=== PATIENT | female | born 1960 | race Caucasian/White ===

== ENCOUNTER 2017-12-08 12:58 | Inpatient (IN) | payer OTHER, MEDICAID ==
[~2017-12-08] VITALS: Ht 200.7 cm; Wt 98.1 kg
[~2017-12-08 12:58] MED LIST: DICY20TA66; ESTR0.5T3; IBU; NAPR375T27 PO; SIMV-8; SIMV-8 PO
[2017-12-08 13:49] LABS: Basophils # (auto) 0.1 uL; Basophils % (auto) 0.7 % (0.0-2.0); Eosinophils # (auto) 0 uL; Eosinophils % (auto) 0.3 % (0.0-7.0); Hematocrit 39.3 % (36.0-46.0); Hemoglobin 13.3 g/dL (12.2-16.2); Lymphocytes # (auto) 0.7 uL; Lymphocytes % (auto) 8.8 % (10.0-50.0); Mean Corpuscular Hemoglobin 34.2 pg (28.0-32.0); Mean Corpuscular Hgb Conc. 33.9 g/dL (32.0-36.0); Mean Corpuscular Volume 100.9 fL (80.0-100.0); Monocytes % (auto) 11.6 % (0.0-12.0); Neutrophils # (auto) 6.4 uL; Neutrophils % (auto) 78.6 % (37.0-80.0); Nucleated Red Blood Cells % 0.1 %; Platelet Count (auto) 288 10^3/uL (140-450); Red Blood Cells 3.89 10^6/uL (4.0-5.20); Red Cell Distribution Width 12.6 % (11.8-14.3); White Blood Cell 8.2 10^3/uL (4.4-10.8)
[2017-12-08 14:10] LABS: Albumin 3.5 g/dL (3.4-5.0); Potassium 4.2 mmol/L (3.5-5.1)
[2017-12-08 14:16] LABS: Bilirubin, Total 0.5 mg/dL (0.2-1.0); Total Protein 7.6 g/dL (6.4-8.2)
[2017-12-08] MEDS ORDERED: SODIUM CHLORIDE 0.9% 1,000 ML IVB ONE (16:33)
[2017-12-08] MEDS ORDERED: ASPirin-EC 81 mg tab PO ONE (16:45)
[2017-12-08] MEDS ORDERED: ONDANSETRON HCL 4 MG/2 ML VIAL IV ONE (16:45)
[2017-12-08] MEDS ORDERED: SODIUM CHLORIDE 0.9% 1,000 ML IV ONE (17:00)
[2017-12-08 17:09] LABS: INR 0.83 (0.9-1.15); Partial Thromboplastin Time 20.9 sec (23.78-33.04)
[2017-12-08 17:11] LABS: Magnesium 2.2 mg/dL (1.6-2.6)
[2017-12-08] MEDS ORDERED: ZOLEDRONIC ACID 4 MG in SODIUM CHL 0.9% 100 ML IV ONE (17:15)
[2017-12-08] MEDS ORDERED: SODIUM CHLORIDE 0.9% 1,000 ML IV SCH (17:23)
[2017-12-08] MEDS ORDERED: ALUM & MAG HYDROX-SIMETH LIQ(MAALOX) 30 ML PO PRN (17:30)
[2017-12-08] MEDS ORDERED: HYDROmorphone HCL 2 MG/ML VL IV PRN (17:30)
[2017-12-08] MEDS ORDERED: DOCUSATE SOD 100 MG CAP PO PRN (17:30)
[2017-12-08 17:33] LABS: Urine Amorphous Crystal FEW /hpf (None Seen); Urine Bacteria FEW /hpf (None Seen); Urine Blood 1+ /uL (Negative); Urine Specific Gravity 1.005 (1.001-1.035); Urine WBC 18 /hpf (0 - 5)
[2017-12-08] MEDS ORDERED: CYANOCOBALAMIN (B-12) 1000 MCG/1 ML VIAL IM ONE (18:00)
[2017-12-08] MEDS: SODIUM CHLORIDE 0.9% 1,000 ML IV SCH (18:34)
[2017-12-08] MEDS: PANTOPRAZOLE 40 MG/10 ML VIAL IV SCH (18:34)
[2017-12-08] MEDS: ONDANSETRON HCL 4 MG/2 ML VIAL IV PRN (19:53)
[2017-12-08 20:20] VITALS: BP 190/111
[2017-12-08 21:00] VITALS: BP 158/115
[2017-12-08] MEDS ORDERED: hydrALAZINE HCL 20 MG/ML VL IV PRN (21:30)
[2017-12-08] MEDS ORDERED: LABETALOL HCL 5 MG/ML ML 20ML VIAL IV PRN (21:50)
[2017-12-08] MEDS: LABETALOL HCL 5 MG/ML ML 20ML VIAL IV PRN (23:00)
[2017-12-09] MEDS: SODIUM CHLORIDE 0.9% 1,000 ML IV SCH ×2 (04:00→16:45)
[2017-12-09 04:43] VITALS: BP 158/86
[2017-12-09 05:44] LABS: Basophils # (auto) 0.1 uL; Basophils % (auto) 0.8 % (0.0-2.0); Eosinophils # (auto) 0.1 uL; Hemoglobin 12.1 g/dL (12.2-16.2); Lymphocytes # (auto) 0.6 uL
[2017-12-09 05:46] LABS: Eosinophils % (auto) 1.3 % (0.0-7.0); Lymphocytes % (auto) 7.4 % (10.0-50.0); Mean Corpuscular Hemoglobin 35.1 pg (28.0-32.0); Mean Corpuscular Hgb Conc. 34.6 g/dL (32.0-36.0); Mean Corpuscular Volume 101.3 fL (80.0-100.0); Monocytes # (auto) 0.5 uL; Monocytes % (auto) 5.8 % (0.0-12.0); Neutrophils # (auto) 7.4 uL; Neutrophils % (auto) 84.7 % (37.0-80.0); Nucleated Red Blood Cells % 0.1 %; Platelet Count (auto) 239 10^3/uL (140-450); Red Blood Cells 3.46 10^6/uL (4.0-5.20); Red Cell Distribution Width 12.3 % (11.8-14.3); White Blood Cell 8.8 10^3/uL (4.4-10.8)
[2017-12-09 06:10] LABS: Potassium 4.3 mmol/L (3.5-5.1)
[2017-12-09 06:20] LABS: BUN/Creatinine Ratio 10.2
[2017-12-09 07:15] LABS: Calcium 14.8 mg/dL (8.5-10.1)
[2017-12-09 08:08] VITALS: BP 163/86
[2017-12-09] MEDS ORDERED: SODIUM CHLORIDE 0.9% 1,000 ML IV SCH (08:30)
[2017-12-09] MEDS: LABETALOL HCL 5 MG/ML ML 20ML VIAL IV PRN (08:48)
[2017-12-09] MEDS: PANTOPRAZOLE 40 MG/10 ML VIAL IV SCH (10:37)
[2017-12-09] MEDS: ONDANSETRON HCL 4 MG/2 ML VIAL IV PRN ×3 (10:37→21:40)
[2017-12-09 12:30] VITALS: BP 153/98
[2017-12-09 15:14] LABS: BUN/Creatinine Ratio 10.5; Potassium 4.3 mmol/L (3.5-5.1)
[2017-12-09 15:30] LABS: Calcium 14.4 mg/dL (8.5-10.1)
[2017-12-09 16:11] VITALS: BP 151/100
[2017-12-09] MEDS ORDERED: hydrALAZINE HCL 20 MG/ML VL IV PRN (16:45)
[2017-12-09] MEDS ORDERED: amLODIPine BESYLATE 5 MG TAB PO ONE (17:00)
[2017-12-09 22:00] VITALS: BP 153/76
[2017-12-10 05:00] VITALS: BP 125/70
[2017-12-10] MEDS: SODIUM CHLORIDE 0.9% 1,000 ML IV SCH ×2 (06:17→12:41)
[2017-12-10 07:09] LABS: Basophils # (auto) 0 uL; Basophils % (auto) 0.7 % (0.0-2.0); Lymphocytes # (auto) 0.6 uL; Mean Corpuscular Hgb Conc. 34.3 g/dL (32.0-36.0); Red Blood Cells 3.43 10^6/uL (4.0-5.20)
[2017-12-10 07:10] LABS: Eosinophils # (auto) 0.1 uL; Eosinophils % (auto) 0.9 % (0.0-7.0); Hematocrit 34.7 % (36.0-46.0); Hemoglobin 11.9 g/dL (12.2-16.2); Lymphocytes % (auto) 9.5 % (10.0-50.0); Mean Corpuscular Hemoglobin 34.6 pg (28.0-32.0); Monocytes # (auto) 0.3 uL; Monocytes % (auto) 5.2 % (0.0-12.0); Neutrophils # (auto) 5.5 uL; Neutrophils % (auto) 83.7 % (37.0-80.0); Nucleated Red Blood Cells % 0.1 %; Platelet Count (auto) 204 10^3/uL (140-450); Red Cell Distribution Width 12.6 % (11.8-14.3); White Blood Cell 6.6 10^3/uL (4.4-10.8)
[2017-12-10 07:17] LABS: BUN/Creatinine Ratio 12.3; Calcium 12.3 mg/dL (8.5-10.1); Potassium 3.9 mmol/L (3.5-5.1)
[2017-12-10 07:57] VITALS: BP 131/76
[2017-12-10 08:00] VITALS: BP 131/76
[2017-12-10] MEDS: PANTOPRAZOLE 40 MG/10 ML VIAL IV SCH (09:43)
[2017-12-10] MEDS: amLODIPine BESYLATE 5 MG TAB PO SCH (09:46)
[2017-12-10 09:47] LABS: Creatinine, Urine 18 mg/dL (30.0-125.0)
[2017-12-10 11:15] LABS: Sodium Urine 82 mmol/L (40-220)
[2017-12-10 11:42] VITALS: BP 136/85
[2017-12-10] MEDS: ONDANSETRON HCL 4 MG/2 ML VIAL IV PRN ×2 (12:19→22:14)
[2017-12-10 16:09] VITALS: BP 131/79
[2017-12-10] MEDS: POLYETHYLENE GLYCOL 17 GM PWDR PO PRN (16:36)
[2017-12-10] MEDS: ACETAMINOPHEN 325 MG TAB PO PRN (19:57)
[2017-12-10] MEDS: DOCUSATE SOD 100 MG CAP PO SCH (21:55)
[2017-12-10 22:00] VITALS: BP 125/78
[2017-12-11] MEDS: SODIUM CHLORIDE 0.9% 1,000 ML IV SCH ×2 (00:16→08:45)
[2017-12-11 05:00] VITALS: BP 112/73
[2017-12-11] MEDS: ACETAMINOPHEN 325 MG TAB PO PRN ×3 (06:39→22:28)
[2017-12-11 08:00] VITALS: BP 108/70
[2017-12-11] MEDS: POLYETHYLENE GLYCOL 17 GM PWDR PO PRN (09:56)
[2017-12-11] MEDS: PANTOPRAZOLE 40 MG/10 ML VIAL IV SCH (10:07)
[2017-12-11] MEDS: amLODIPine BESYLATE 5 MG TAB PO SCH (10:08)
[2017-12-11] MEDS: DOCUSATE SOD 100 MG CAP PO SCH ×2 (10:09→22:27)
[2017-12-11 12:00] VITALS: BP 130/80
[2017-12-11 12:58] LABS: BUN/Creatinine Ratio 15.1; Potassium 3.9 mmol/L (3.5-5.1)
[2017-12-11 15:00] VITALS: BP 130/76
[2017-12-11] MEDS: ONDANSETRON HCL 4 MG/2 ML VIAL IV PRN ×2 (15:08→22:28)
[2017-12-11 22:00] VITALS: BP 141/91
[2017-12-11] MEDS ORDERED: MORPHINE SULFATE 8mg/ml INJ SDV IV PRN (23:00)
[2017-12-11] MEDS ORDERED: MORPHINE SULFATE 4 MG/ML SYR/VIAL IV PRN (23:30)
[2017-12-12] MEDS: MORPHINE SULF(PF) 0.5MG/ML 10ML VIAL ONE ×2 (00:12→00:27)
[2017-12-12] MEDS: SODIUM CHLORIDE 0.9% 1,000 ML IV SCH ×4 (00:28→21:58)
[2017-12-12 05:19] VITALS: BP 129/79
[2017-12-12 08:21] LABS: Basophils # (auto) 0.1 uL; Eosinophils # (auto) 0.4 uL; Eosinophils % (auto) 7.1 % (0.0-7.0); Hematocrit 32.7 % (36.0-46.0); Hemoglobin 11.1 g/dL (12.2-16.2); Lymphocytes # (auto) 1.7 uL; Lymphocytes % (auto) 28.2 % (10.0-50.0); Mean Corpuscular Hemoglobin 33.9 pg (28.0-32.0); Mean Corpuscular Hgb Conc. 33.9 g/dL (32.0-36.0); Mean Corpuscular Volume 99.8 fL (80.0-100.0); Monocytes # (auto) 0.5 uL; Monocytes % (auto) 7.6 % (0.0-12.0); Neutrophils # (auto) 3.3 uL; Neutrophils % (auto) 56.1 % (37.0-80.0); Platelet Count (auto) 210 10^3/uL (140-450); Red Blood Cells 3.28 10^6/uL (4.0-5.20); Red Cell Distribution Width 12.3 % (11.8-14.3)
[2017-12-12 08:39] LABS: BUN/Creatinine Ratio 19.4; Calcium 8.9 mg/dL (8.5-10.1); Potassium 4.3 mmol/L (3.5-5.1)
[2017-12-12 09:00] VITALS: BP 125/72
[2017-12-12] MEDS: PANTOPRAZOLE 40 MG/10 ML VIAL IV SCH (10:04)
[2017-12-12] MEDS: amLODIPine BESYLATE 5 MG TAB PO SCH (10:05)
[2017-12-12] MEDS: DOCUSATE SOD 100 MG CAP PO SCH ×2 (10:05→21:53)
[2017-12-12] MEDS: traMADol HCL 50 MG TAB PO PRN ×2 (11:02→21:53)
[2017-12-12] MEDS: ONDANSETRON HCL 4 MG/2 ML VIAL IV PRN ×3 (11:02→21:53)
[2017-12-12 12:46] VITALS: BP 145/81
[2017-12-12 17:00] VITALS: BP 132/76
[2017-12-12] MEDS: ACETAMINOPHEN 325 MG TAB PO PRN ×2 (18:06→23:52)
[2017-12-12 22:00] VITALS: BP 132/77
[2017-12-13] MEDS: ONDANSETRON HCL 4 MG/2 ML VIAL IV PRN ×2 (03:09→14:38)
[2017-12-13 05:00] VITALS: BP 133/80
[2017-12-13 07:38] LABS: BUN/Creatinine Ratio 16.3
[2017-12-13 09:00] VITALS: BP 125/78
[2017-12-13] MEDS: DOCUSATE SOD 100 MG CAP PO SCH (10:01)
[2017-12-13] MEDS: PANTOPRAZOLE 40 MG/10 ML VIAL IV SCH (10:01)
[2017-12-13] MEDS: traMADol HCL 50 MG TAB PO PRN (10:14)
[2017-12-13] MEDS: amLODIPine BESYLATE 5 MG TAB PO SCH (10:38)
[2017-12-13] MEDS: SODIUM CHLORIDE 0.9% 1,000 ML IV SCH (10:45)
[2017-12-13 12:39] VITALS: BP 124/65
[2017-12-13 14:43] VITALS: BP 125/78
== END 2017-12-13 15:40 | disposition hospice, inpatient (51) | DRG 280 ==
LOC: EDBD 12:58 → ER 12:58 → TELE 12:59 → TELE-WESTW 20:24 → WEST WING 12-09 11:01
PROVIDERS: ADMIT Family Medicine; ATTEND Family Medicine
DX: I21.A1 Myocardial infarction type 2 (principal); G93.41 Metabolic encephalopathy; R64 Cachexia; N17.9 Acute kidney failure, unspecified; G10 Huntington's disease; I12.0 Hypertensive chronic kidney disease with stage 5 chronic kidney disease or end stage renal disease; N18.5 Chronic kidney disease, stage 5; E83.52 Hypercalcemia; Z51.5 Encounter for palliative care; E86.0 Dehydration; F32.9 Major depressive disorder, single episode, unspecified; E78.5 Hyperlipidemia, unspecified; K21.9 Gastro-esophageal reflux disease without esophagitis; Z90.710 Acquired absence of both cervix and uterus; Z88.8 Allergy status to other drugs, medicaments and biological substances; Z88.1 Allergy status to other antibiotic agents; Z79.899 Other long term (current) drug therapy
CPT/HCPCS: 36415; 71045; 72100; 80048; 80053; 81001; 82150; 82306; 82570; 83690; 83735; 83970; 84100; 84300; 84484; 85025; 85610; 85730; 93005; 96372; 96374; 96375; 96376; 99291; C9113; J2405; J3489